=== PATIENT | male | born 1980 | race African-American/Black ===

== ENCOUNTER 2023-05-01 17:59 | Emergency (ER) | payer OTHER ==
[2023-05-01] VITALS (15 sets, daily range): BP systolic 131–179; BP diastolic 85–113
[2023-05-01 22:07] LABS: BASO% 0.8 % (0-3); EOS% 5.3 % (0-8); HEMATOCRIT 43.3 % (39.0-50.0); HEMOGLOBIN 13.9 g/dl (14.0-18.0); IMMATURE GRANULOCYTES 0.2 % (0.0-5.0); LYMPH% 54.8 % (15-41); MEAN CELL VOLUME 85.6 fL CALC (80.0-100.0); MEAN CORPUSCULAR HGB 27.5 pG CALC (26.0-32.0); MEAN CORPUSCULAR HGB CONC 32.1 g/dL CAL (32.0-36.0); MONO% 11.5 % (2-13); NEUT# 1.29 thou/uL (1.82-7.42); NEUT% 27.4 % (42-76); RED BLOOD COUNT 5.06 mill/uL (4.70-6.10); RED CELL DISTRI WIDTH 14.4 % (11.5-15.5)
[2023-05-01 22:21] LABS: ANION GAP 14 (6-22 (CALC)); BUN 9 mg/dL (9-20); BUN/CREATININE RATIO 11 (12-20 (CALC)); CARBON DIOXIDE 25 mmol/l (22-30); CHLORIDE 105 mmol/l (95-108); CREATININE 0.8 mg/dL (0.7-1.3); GFR FOR AFR.AMER. > 60 ML/MIN (>=60 (CALC)); GFR OTHER RACES > 60 ML/MIN (>=60 (CALC)); POTASSIUM 3.7 mmol/l (3.5-5.1); SODIUM 140 mmol/l (137-146)
[2023-05-02 01:18] VITALS: BP 129/89
== END 2023-05-02 01:18 | disposition home or self-care (01) | DRG 156 ==
LOC: ED 17:59
PROVIDERS: Emergency Medicine
DX: R07.0 Pain in throat (principal); Z20.822 Contact with and (suspected) exposure to COVID-19
CPT/HCPCS: Q9967